=== PATIENT | female | born 1975 ===

== ENCOUNTER 2023-02-06 08:24 | Outpatient (CLI) | payer OTHER | END 2023-02-06 08:37 | disposition home or self-care (01) | LOC: MAMO-SONO 08:24 | PROVIDERS: ATTEND Internal Medicine Rheumatology | DX: Z12.31 Encounter for screening mammogram for malignant neoplasm of breast (principal); N60.11 Diffuse cystic mastopathy of right breast; N60.12 Diffuse cystic mastopathy of left breast; R05.8 Other specified cough; M17.9 Osteoarthritis of knee, unspecified ==

== ENCOUNTER 2024-01-29 14:26 | Outpatient (CLI) | payer OTHER | END 2024-01-29 14:35 | disposition home or self-care (01) | LOC: RAD 14:26 | DX: J31.0 Chronic rhinitis (principal); L50.0 Allergic urticaria; L20.9 Atopic dermatitis, unspecified ==

== ENCOUNTER 2024-06-08 15:16 | Outpatient (CLI) | payer OTHER | END 2024-06-08 15:29 | disposition home or self-care (01) | LOC: RAD 15:16 | DX: M54.2 Cervicalgia (principal) ==

== ENCOUNTER 2024-12-05 13:54 | Outpatient (CLI) | payer OTHER | END 2024-12-05 14:08 | disposition home or self-care (01) | LOC: MAMO-SONO 13:54 | PROVIDERS: ATTEND Obstetrics & Gynecology | DX: N60.11 Diffuse cystic mastopathy of right breast (principal); N60.12 Diffuse cystic mastopathy of left breast ==